=== PATIENT | female | born 1995 | race Caucasian/White ===

== ENCOUNTER 2023-04-21 13:00 | Outpatient (CLI) | payer OTHER ==
[~2023-04-21] VITALS: Ht 154.9 cm; Wt 68.6 kg
[2023-04-21 13:10] VITALS: BP 122/76; PULSE 81; TEMP 97.4
[2023-04-21 13:50] VITALS: BP 101/58; PULSE 83
--- NOTE | 2023-04-21 13:51 | NUR ---
1310 PATIENT HERE FOR COMPLAINTS OF OPENING A DOOR AT WORK AND DOOR HIT STOMACH AND LEFT A SMALL SCRAPE. NO BLEEDING NOTED. NO PAIN NOTED. EFM ON FHT 135 BABY VERY ACTIVE. OCCASIONAL CONTRACTIONS NOTED BUT PATIENT DID NOT FEEL AND PALPATED MILD. NO OTHER COMPLAINTS. DR WHITFIELD CALLED AND UPDATED.
--- NOTE | 2023-04-21 13:54 | NUR ---
1340 NO CHANGES. NO COMPLAINTS. EFM FHT 120 BABY VERY ACTIVE. NO CONTRACTIONS FELT. DENIES NEEDS. ALL DISCHARGE INSTRUCTIONS GIVEN TO PATIENT WITH VERBAL UNDERSTANDING NOTED. DISMISS TO POV.
== END 2023-04-21 13:50 ==
LOC: LDRO 13:00
DX: O9A.219 Injury, poisoning and certain other consequences of external causes complicating pregnancy, unspecified trimester (principal); S30.811A Abrasion of abdominal wall, initial encounter; X58.XXXA Exposure to other specified factors, initial encounter; Z3A.00 Weeks of gestation of pregnancy not specified